=== PATIENT | male | born 1960 | race Caucasian/White ===

== ENCOUNTER → 2019-10-18 | Outpatient (CLI) | payer BC, OTHER | END | disposition home or self-care (01) | LOC: CVU 15:47 | PROVIDERS: ATTEND Registered Nurse | CPT/HCPCS: 0399T ×2; 93306 ×2 ==

== ENCOUNTER 2020-02-27 10:57 | Day surgery (SDC) | payer OTHER ==
[~2020-02-27] VITALS: Ht 190.5 cm; Wt 97.7 kg
[2020-02-27 11:44] VITALS: BP 137/76
[2020-02-27] MEDS ORDERED: FINA5TAB4 PO (11:53)
[2020-02-27 12:12] LABS: BASOPHILS # (AUTO) 0.03 x10^3/uL (0-0.1); BASOPHILS % (AUTO) 1 % (0-1); EOSINOPHILS # (AUTO) 0.04 x10^3/uL (0-0.4); EOSINOPHILS % (AUTO) 1 % (1-7); LYMPHOCYTES # (AUTO) 1.73 x10^3/uL (1-3.4); LYMPHOCYTES % (AUTO) 30 % (22-44); MD NO; MEAN CORPUSCULAR HEMOGLOBIN 31.3 pg (27.5-34.5); MEAN CORPUSCULAR HGB CONC 33.9 g/dL (33.2-36.2); MEAN CORPUSCULAR VOLUME 92.4 fL (81-97); MONOCYTES # (AUTO) 0.41 x10^3/uL (0.2-0.8); MONOCYTES % (AUTO) 7 % (2-9); NEUTROPHILS # (AUTO) 3.51 x10^3/uL (1.8-6.8); NEUTROPHILS % (AUTO) 61 % (42-75); PLATELET COUNT 165 x10^3/uL (130-400); RED BLOOD COUNT 5.23 x10^6/uL (4.38-5.82); RED CELL DISTRIBUTION WIDTH 12.7 % (9.4-14.8)
[2020-02-27] MEDS ORDERED: FENTANYL PF 100 MCG/2ML ONE (12:14)
[2020-02-27] MEDS ORDERED: MIDAZOLAM 1 MG/ML, 5ML ONE (12:14)
[2020-02-27] MEDS ORDERED: VERAPAMIL 2.5 MG/ML, 2ML ONE (12:14)
[2020-02-27] MEDS ORDERED: BIVALIRUDIN 250 MG ONE (12:15)
[2020-02-27] MEDS ORDERED: HEPARIN 1,000 UNITS/ML, 10ML ONE (12:15)
[2020-02-27] MEDS ORDERED: LIDOCAINE-MPF 1%, 5ML ONE (12:15)
[2020-02-27 12:19] LABS: CALCIUM 8.9 mg/dL (8.5-10.1); CREATININE 1.23 mg/dL (0.7-1.3)
[2020-02-27] MEDS ORDERED: ASPI-496 PO (12:29)
[2020-02-27] MEDS ORDERED: DIPHENHYDRAMINE 50 MG/ML, 1ML ONE (12:40)
[2020-02-27] MEDS ORDERED: methylPREDNISolone SOD SUCC 125 MG/2 ML ONE (12:40)
[2020-02-27 12:41] LABS: ANION GAP 6 mmol/L (5-15); CHLORIDE 111 mmol/L (98-107)
== END 2020-02-27 14:50 | disposition home or self-care (01) ==
LOC: CACL 10:57
PROVIDERS: ATTEND Internal Medicine Cardiovascular Disease
DX: R93.1 Abnormal findings on diagnostic imaging of heart and coronary circulation (principal); I25.119 Atherosclerotic heart disease of native coronary artery with unspecified angina pectoris; I25.83 Coronary atherosclerosis due to lipid rich plaque; I10 Essential (primary) hypertension; E78.5 Hyperlipidemia, unspecified; Z79.02 Long term (current) use of antithrombotics/antiplatelets; Z79.899 Other long term (current) drug therapy; Z91.041 Radiographic dye allergy status; Z82.49 Family history of ischemic heart disease and other diseases of the circulatory system
CPT/HCPCS: 36415; 80048; 85025; 93458; 99156; C1769; C1894; J1200; J1644; J2250; J2930; J3010; Q9967; J0583